=== PATIENT | female | born 1985 | race African-American/Black ===

== ENCOUNTER 2016-10-12 13:35 | Emergency (ER) | payer MEDICAID ==
[~2016-10-12] VITALS: Ht 177.8 cm; Wt 85.7 kg
[~2016-10-12 13:35] MED LIST: BACTRIM DS TAB1 EAC1 ORAL; BENADRYL25 MG ORAL; NKM
[2016-10-12 14:00] VITALS: BP 178/76
[2016-10-12] MEDS ORDERED: Ipratropium 0.02% Inh Soln 2.5ml UD HHN ONE (14:30)
[2016-10-12] MEDS ORDERED: Albuterol ud Inhalation HHN ONE (14:30)
[2016-10-12 15:00] VITALS: BP 144/69
[2016-10-12] MEDS ORDERED: PROMETHAZINE-D118 ML ORAL (15:25)
[2016-10-12] MEDS ORDERED: PREDNISONE20 MG ORAL (15:25)
[2016-10-12] MEDS ORDERED: ALBUTEROL SULF8.5 GM INH (15:25)
[2016-10-12 15:32] VITALS: BP 144/69
--- NOTE | 2016-10-12 15:46 | Diagnostic Imaging Report ---
Indication: Cough Technique: Single portable AP view of the chest. Findings: Comparison: None. The bones and extra pulmonary soft tissues, cardiomediastinal silhouette, pulmonary vasculature and parenchyma, and pleural surfaces are unremarkable. IMPRESSION: Negative portable AP chest.
--- NOTE | 2016-10-12 22:51 | Emergency Room Report ---
History of Present Illness General Chief Complaint: General Complaint Source: Patient Present Illness HPI 30-year-old female presents ED complaining of chest tightness and shortness of breath x2 days. No difficulty breathing, worse with deep breaths. Notes dry cough. Notes runny nose and bodyaches. Denies fevers or chills. Denies sick contacts or recent travel. No other aggravating relieving factors. Denies any other associated symptoms Allergies: Coded Allergies: MORPHINE (Verified Allergy, Unknown, Shortness of Breath, 06/15/16) Patient History Past Medical History: none Past Surgical History: none Pertinent Family History: none Social History: Denies: alcohol use, drug use, smoking Last Menstrual Period: 1 year ago; contraceptive measure Now: No Immunizations: UTD Reviewed Nursing Documentation: PMH: Agreed, PSxH: Agreed Nursing Documentation-PMH Past Medical History: No Stated History Review of Systems All Other Systems: negative except mentioned in HPI Physical Exam Vital Signs Date Time Temp Pulse Resp B/P Pulse Ox O2 Delivery O2 Flow Rate FiO2 10/12/16 13:47 98.6 91 16 117/71 98 Room Air 10/12/16 14:30 21 Sp02 EP Interpretation: reviewed, normal General Appearance: normal inspection Head: normocephalic Eyes: bilateral eye PERRL, bilateral eye normal inspection ENT: normal ENT inspection Neck: normal inspection Respiratory: wheezing Cardiovascular #1: regular rate, rhythm, no edema Gastrointestinal: normal bowel sounds, non tender, soft, non-distended, no guarding, no rebound Rectal: deferred Genitourinary: no CVA tenderness Musculoskeletal: normal inspection Neurologic: alert, oriented x3, responsive, motor strength/tone normal, sensory intact, speech normal Psychiatric: normal inspection Skin: normal inspection Lymphatic: normal inspection Medical Decision Making Diagnostic Impression: Primary Impression: Bronchitis ER Course Hospital Course 30-year-old female presents to ED complaining of dry cough, chest tightness and shortness of breath Differential diagnoses include: URI, bronchitis, asthma/COPD, pneumonia Clinical course Patient placed on stretcher. After initial history and physical I ordered a pleasant treatment, EKG, chest x-ray EKG-no ischemic change CXR unremarkable Upon reassessment patient states cough and symptoms have improved. Findings consistent with bronchitis. Diagnosis - bronchitis Stable and discharged home with prescriptions for Rx albuterol, prednisone, cough syrup. Instructed to followup with PMD. Return to ED if symptoms recur or worsen EKG Diagnostic Results Rate: normal Rhythm: NSR ST Segments: no acute changes ASA given to the pt in ED: No Rhythm Strip Diag. Results EP Interpretation: yes Rhythm: NSR, no PVC's, no ectopy Chest X-Ray Diagnostic Results EP Interpretation: No Findings: no consolidation, no effusion, no pneumothorax, no acute cardiopulmonary disease Number of Views: 1 Last Vital Signs Date Time Temp Pulse Resp B/P Pulse Ox O2 Delivery O2 Flow Rate FiO2 10/12/16 15:32 98.6 100 19 144/69 100 Room Air 21 Status: improved Disposition: HOME, SELF-CARE Condition: Stable Scripts D-Methorphan Hb/Prometh Hcl* (PROMETHAZINE-DM SYRUP*) 118 Ml Syrup 5 ML ORAL Q4H Y for For Cough for 7 Days, ML 0 Refills Prov: ADRIENNE BRISCOE M.D. 10/12/16 Prednisone* (PREDNISONE*) 20 Mg Tablet 40 MG ORAL DAILY, #10 TAB Prov: ADRIENNE BRISCOE M.D. 10/12/16 Albuterol Sulfate* (ALBUTEROL SULFATE MDI*) 8.5 Gm Hfa.aer.ad 2 PUFF INH Q4H Y for cough/wheezing, #1 EA 0 Refills Prov: ADRIENNE BRISCOE M.D. 10/12/16 Patient Instructions: Acute Bronchitis, [id number] ADRIENNE BRISCOE M.D. Oct 12, 2016 22:51
--- NOTE | 2016-10-17 20:30 | Cardiology Report ---
APPROVED REPORT EKG Measurement Heart [id number] IN 158P34 [id number] Normal sinus rhythm Nonspecific T wave abnormality Prolonged QT Abnormal ECG
== END 2016-10-12 15:33 | disposition home or self-care (01) ==
LOC: EMR 14:15
DX: J40 Bronchitis, not specified as acute or chronic (principal)
CPT/HCPCS: 71010; 93005; 94640; 94664; 99284

== ENCOUNTER 2017-08-02 00:18 | Emergency (ER) | payer MEDICAID ==
[~2017-08-02] VITALS: Ht 157.5 cm; Wt 85.3 kg
[~2017-08-02 00:18] MED LIST changes: +ALBUTEROL SULF8.5 GM INH; +DIFLUCAN100 MG ORAL; +MACROBID100 MG ORAL; +PREDNISONE20 MG ORAL; +PROMETHAZINE-D118 ML ORAL
[2017-08-02 00:23] VITALS: BP 141/88
[2017-08-02] MEDS ORDERED: NKM (00:24)
[2017-08-02] MEDS ORDERED: KEFLEX500 MG ORAL (00:40)
[2017-08-02] MEDS ORDERED: IBUPROFEN600 MG ORAL (00:40)
[2017-08-02] MEDS ORDERED: Cephalexin 500mg cap ORAL ONE (00:45)
[2017-08-02 00:48] VITALS: BP 141/88
--- NOTE | 2017-08-02 03:58 | Emergency Room Report ---
History of Present Illness General Chief Complaint: Skin Rash/Abscess Source: Patient Present Illness HPI 31-year-old female presents ED for evaluation. Patient states that she noticed swelling to the right side of her face and right hand this morning. Pain as throbbing, 8/10, nonradiating denies fevers chills. Denies any drainage. Denies any known food or drug allergies. Denies tongue swelling or throat swelling. Father aggravating relieving factors. Denies any other associated symptoms Allergies: Coded Allergies: MORPHINE (Verified Allergy, Unknown, Shortness of Breath, 06/15/16) Patient History Past Medical History: none Past Surgical History: none Pertinent Family History: none Social History: Denies: smoking, alcohol use, drug use Last Menstrual Period: 01/08/17 Now: No : 2 Para: 2 Immunizations: UTD Reviewed Nursing Documentation: PMH: Agreed, PSxH: Agreed Nursing Documentation-PMH Past Medical History: No Stated History Review of Systems All Other Systems: negative except mentioned in HPI Physical Exam Vital Signs Date Time Temp Pulse Resp B/P (MAP) Pulse Ox O2 Delivery O2 Flow Rate FiO2 08/02/17 00:21 98.4 79 14 141/88 99 Room Air Sp02 EP Interpretation: reviewed, normal General Appearance: no apparent distress, alert, GCS 15, non-toxic Head: normocephalic Eyes: bilateral eye normal inspection, bilateral eye PERRL ENT: normal ENT inspection Neck: normal inspection Respiratory: normal inspection Cardiovascular #1: normal inspection Gastrointestinal: normal inspection Rectal: deferred Genitourinary: no CVA tenderness Musculoskeletal: normal inspection Neurologic: alert, oriented x3, responsive, motor strength/tone normal, sensory intact, speech normal Psychiatric: judgement/insight normal, memory normal, mood/affect normal, no suicidal/homicidal ideation Skin: other - induration/erythema to R side of face, R hand. no fluctuance or discharge Lymphatic: normal inspection Medical Decision Making Diagnostic Impression: Primary Impression: Insect bite Qualified Codes: W57.XXXA - Bitten or stung by nonvenomous insect and other nonvenomous arthropods, initial encounter ER Course Hospital Course 31-year-old female presents to ED with redness, swelling to face, R hand Differential diagnoses include: Cellulitis, dermatitis, insect bite, abscess Clinical course Patient placed on stretcher. After initial history, physical exam reveals a female in no acute distress. On exam there is a site for mild erythema and induration to the right side of face and R hand. There is no fluctuance. There is no tongue swelling, no stridor, no signs of impending airway. Clinical findings consistent with a insect bite with the possible bacterial superinfection. reassurance given given keflex in ED Diagnosis - insect bite stable and discharged to home with prescription for Keflex. recommend warm compresses. Instructed to followup with PMD. Instructed return to ED if symptoms recur or worsen Last Vital Signs Date Time Temp Pulse Resp B/P (MAP) Pulse Ox O2 Delivery O2 Flow Rate FiO2 08/02/17 00:48 98.4 79 14 141/88 99 Room Air Status: improved Disposition: HOME, SELF-CARE Condition: Stable Scripts Ibuprofen* (MOTRIN*) 600 Mg Tablet 600 MG ORAL Q8H Y for For Pain, #30 TAB 0 Refills Prov: ADRIENNE BRISCOE M.D. 08/02/17 Cephalexin* (KEFLEX*) 500 Mg Capsule 500 MG ORAL Q6H, #28 CAP 0 Refills Prov: ADRIENNE BRISCOE M.D. 08/02/17 Referrals: [facility]ERR[facility] (PCP) Patient Instructions: Insect Bite, [id number] ADRIENNE BRISCOE M.D. Aug 02, 2017 03:58
== END 2017-08-02 00:48 | disposition home or self-care (01) ==
LOC: EMR 00:30
DX: S00.86XA Insect bite (nonvenomous) of other part of head, initial encounter (principal); S60.561A Insect bite (nonvenomous) of right hand, initial encounter; W57.XXXA Bitten or stung by nonvenomous insect and other nonvenomous arthropods, initial encounter; Y92.9 Unspecified place or not applicable; M79.89 Other specified soft tissue disorders
CPT/HCPCS: 99284

== ENCOUNTER 2017-12-26 08:38 | Emergency (ER) | payer MEDICAID ==
[~2017-12-26] VITALS: Ht 154.9 cm; Wt 84.4 kg
[~2017-12-26 08:38] MED LIST changes: +IBUPROFEN600 MG ORAL; +KEFLEX500 MG ORAL
[2017-12-26] MEDS ORDERED: Albuterol/Ipratropium 3ml neb HHN ONE (09:00)
--- NOTE | 2017-12-26 09:16 | Emergency Room Report ---
History of Present Illness General Chief Complaint: Upper Respiratory Illness Source: Patient Present Illness HPI Patient presents to the emergency department today complaining of 2 weeks of worsening cough and congestion. She has clear sputum but today had some hemoptysis. Patient also complains of left lower extremity swelling. Patient is on control and has an implant. She 90 fever. She complains of some shortness of breath and chest pain with coughing. Denies any abdominal pain. Denies any dysuria or urinary frequency. Patient states that her bilateral ankles have been a little bit more swollen over the last couple of days but seems to be worse on the left. She denies any calf pain. No recent travel. No history of pulmonary embolism or DVT. Symptoms is noted to be moderate to severe. Patient denies standing.No other modifying factors. No other associated signs and symptoms. No other complaints were noted. Allergies: Coded Allergies: MORPHINE (Verified Allergy, Unknown, Shortness of Breath, 06/15/16) Patient History Past Surgical History: none Pertinent Family History: none Social History: Denies: smoking, alcohol use, drug use Last Menstrual Period: Unk date Reviewed Nursing Documentation: PMH: Agreed; PSxH: Agreed Review of Systems All Other Systems: negative except mentioned in HPI Physical Exam Vital Signs Date Time Temp Pulse Resp B/P (MAP) Pulse Ox O2 Delivery O2 Flow Rate FiO2 12/26/17 08:43 98.4 98 19 142/95 97 Room Air 98.4 Sp02 EP Interpretation: reviewed, normal General Appearance: normal inspection, alert, mild distress, other - coughing Head: atraumatic Eyes: bilateral eye normal inspection ENT: normal ENT inspection, hearing grossly normal, normal voice Neck: normal inspection, full range of motion, supple, no bony tend Respiratory: normal inspection, no respiratory distress, no retraction, decreased breath sounds, wheezing, expiration Cardiovascular #1: regular rate, rhythm, other - trace pedal edema Gastrointestinal: normal inspection, normal bowel sounds, non tender, soft, no guarding, no hernia Genitourinary: no CVA tenderness Musculoskeletal: back normal, normal range of motion, swelling - bilateral ankle worse on the left Neurologic: normal inspection, alert, responsive, speech normal Psychiatric: normal inspection, judgement/insight normal, anxious Skin: normal inspection, normal color, no rash Medical Decision Making Diagnostic Impression: Primary Impression: Cough Additional Impression: Pedal edema ER Course Patient presents to the emergency department today complaining of cough. In addition she complains of pedal edema. Differential considerations include DVT pneumothorax pneumonia bronchitis just the name a few.Given the severity of the patient's presentation I felt this is a highly complex patient. This patient required extensive workup. Patient's laboratory workup was negative. Chest exam was also normal. Because of patient's unilateral pedal edema ultrasound was performed which was negative for DVT. I felt the patient likely had trace pedal edema she is advised to elevate her legs. Her chest x-ray was negative but her symptoms have been lasting a long time. Therefore she was given albuterol antibiotics.Patient is advised to follow up with primary doctor in 2-3 days and return the emergency room for any worsening symptoms and as needed. Labs Test 12/26/17 09:02 White Blood Count 8.7 K/UL (4.8-10.8) Red Blood Count 4.62 M/UL (4.20-5.40) Hemoglobin 14.6 G/DL (12.0-16.0) Hematocrit 43.8 % (37.0-47.0) Mean Corpuscular Volume 95 FL (80-99) Mean Corpuscular Hemoglobin 31.6 PG (27.0-31.0) Mean Corpuscular Hemoglobin Concent 33.3 G/DL (32.0-36.0) Red Cell Distribution Width 13.1 % (11.6-14.8) Platelet Count 274 K/UL (150-450) Mean Platelet Volume 7.8 FL (6.5-10.1) Neutrophils (%) (Auto) 54.4 % (45.0-75.0) Lymphocytes (%) (Auto) 32.6 % (20.0-45.0) Monocytes (%) (Auto) 6.7 % (1.0-10.0) Eosinophils (%) (Auto) 5.0 % (0.0-3.0) Basophils (%) (Auto) 1.3 % (0.0-2.0) D-Dimer 0.24 mg/L FEU (0.00-0.49) Urine Color Yellow Urine Appearance Slightly cloudy Urine pH 8 (4.5-8.0) Urine Specific [place] 1.010 (1.005-1.035) Urine Protein Negative (NEGATIVE) Urine Glucose (UA) Negative (NEGATIVE) Urine Ketones Negative (NEGATIVE) Urine Occult Blood 1+ (NEGATIVE) Urine Nitrite Negative (NEGATIVE) Urine Bilirubin Negative (NEGATIVE) Urine Urobilinogen Normal MG/DL (0.0-1.0) Urine Leukocyte Esterase 1+ (NEGATIVE) Urine RBC 0-2 /HPF (0 - 2) Urine WBC 2-4 /HPF (0 - 2) Urine Squamous Epithelial Cells Few /LPF (NONE/OCC) Urine Amorphous Sediment Occasional /LPF (NONE) Urine Bacteria Few /HPF (NONE) Urine HCG, Qualitative Negative (NEGATIVE) Sodium Level 140 MMOL/L (136-145) Potassium Level 3.9 MMOL/L (3.5-5.1) Chloride Level 105 MMOL/L (98-107) Carbon Dioxide Level 28 MMOL/L (21-32) Anion Gap 7 mmol/L (5-15) Blood Urea Nitrogen 9 mg/dL (7-18) Creatinine 0.8 MG/DL (0.55-1.30) Estimat Glomerular Filtration Rate > 60 mL/min (>60) Glucose Level 102 MG/DL (74-106) Calcium Level 9.5 MG/DL (8.5-10.1) Total Bilirubin 0.3 MG/DL (0.2-1.0) Aspartate Amino Transf (AST/SGOT) 19 U/L (15-37) Alanine Aminotransferase (ALT/SGPT) 28 U/L (12-78) Alkaline Phosphatase 84 U/L (46-116) Total Creatine Kinase 292 U/L (26-308) Creatine Kinase MB < 0.5 NG/ML (0.0-3.6) Creatine Kinase MB Relative Index 0.1 Troponin I 0.000 ng/mL (0.000-0.056) Pro-B-Type Natriuretic Peptide 14 pg/mL (0-125) Total Protein 8.1 G/DL (6.4-8.2) Albumin 4.0 G/DL (3.4-5.0) Globulin 4.1 g/dL Albumin/Globulin Ratio 1.0 (1.0-2.7) EKG Diagnostic Results Rate: normal Rhythm: NSR ST Segments: no acute changes Rhythm Strip Diag. Results EP Interpretation: yes Rate: 83 Rhythm: NSR, no PVC's, no ectopy CT/MRI/US Diagnostic Results CT/MRI/US Diagnostic Results : Imaging Test Ordered: left lower extremity ultrasound: Neg Last Vital Signs Date Time Temp Pulse Resp B/P (MAP) Pulse Ox O2 Delivery O2 Flow Rate FiO2 12/26/17 08:50 98 19 Room Air 12/26/17 08:43 98.4 142/95 97 98.4 Status: improved Disposition: HOME, SELF-CARE Condition: Stable Scripts Azithromycin* (ZITHROMAX*) 250 Mg Tablet 250 MG ORAL DAILY, #6 TAB 0 Refills Take two tablets by mouth today, then take one tablet by mouth daily for four days Prov: ALMA SHAW M.D. 12/26/17 Albuterol Sulfate* (ALBUTEROL SULFATE MDI*) 8.5 Gm Hfa.aer.ad 2 PUFF INH Q4H PRN for cough/wheezing, #1 EA 0 Refills Prov: ALMA SHAW M.D. 12/26/17 ALMA SHAW M.D. Dec 26, 2017 09:16
[2017-12-26 09:17] VITALS: BP 125/85
[2017-12-26 09:42] LABS: APPEARANCE,URINE SLIGHTLY CLOUDY; BILIRUBIN, URINE NEGATIVE (NEGATIVE); COLOR,URINE YELLOW; GLUCOSE, URINE (UA) NEGATIVE (NEGATIVE); KETONES,URINE NEGATIVE (NEGATIVE); LEUKOCYTE ESTERASE ,URINE 1+ (NEGATIVE); NITRITE,URINE NEGATIVE (NEGATIVE); PH,URINE 8 (4.5-8.0); PROTEIN,URINE NEGATIVE (NEGATIVE); UROBILINOGEN,URINE NORMAL MG/DL (0.0-1.0)
[2017-12-26 09:47] LABS: ANION GAP 7 mmol/L (5-15); BLOOD UREA NITROGEN 9 mg/dL (7-18); CALCIUM 9.5 MG/DL (8.5-10.1); CARBON DIOXIDE 28 MMOL/L (21-32); CHLORIDE 105 MMOL/L (98-107); CREATININE 0.8 MG/DL (0.55-1.30); POTASSIUM 3.9 MMOL/L (3.5-5.1); SODIUM 140 MMOL/L (136-145)
[2017-12-26 09:54] LABS: BASOPHILS % (AUTO) 1.3 % (0.0-2.0); HEMATOCRIT 43.8 % (37.0-47.0); HEMOGLOBIN 14.6 G/DL (12.0-16.0); LYMPHOCYTES % (AUTO) 32.6 % (20.0-45.0); MEAN CORPUSCULAR VOLUME 95 FL (80-99); MONOCYTES % (AUTO) 6.7 % (1.0-10.0); NEUTROPHILS % (AUTO) 54.4 % (45.0-75.0); PLATELET COUNT 274 K/UL (150-450); RED BLOOD COUNT 4.62 M/UL (4.20-5.40); RED CELL DISTRIBUTION WIDTH 13.1 % (11.6-14.8); WHITE BLOOD COUNT 8.7 K/UL (4.8-10.8)
[2017-12-26 09:59] LABS: ALANINE AMINOTRANSFERASE 28 U/L (12-78); ALKALINE PHOSPHATASE 84 U/L (46-116); ASPARTATE AMINO TRANSFERASE 19 U/L (15-37); BILIRUBIN,TOTAL 0.3 MG/DL (0.2-1.0); CKMB < 0.5 NG/ML (0.0-3.6); CREATINE KINASE 292 U/L (26-308)
--- NOTE | 2017-12-26 10:02 | Diagnostic Imaging Report ---
Indication: Cough Technique: One view of the chest Comparison: 10/12/2016 Findings: Lungs and pleural spaces are clear. Heart size is normal Impression: No acute process
[2017-12-26] MEDS ORDERED: ALBUTEROL SULF8.5 GM INH (11:16)
[2017-12-26] MEDS ORDERED: AZITHROMYCIN250 MG ORAL (11:16)
[2017-12-26 11:23] VITALS: BP 125/85
--- NOTE | 2017-12-27 21:13 | Cardiology Report ---
APPROVED REPORT EKG Measurement Heart [id number] CT 108P14 [id number] Sinus rhythm with short CT Moderate voltage criteria for LVH, may be normal variant Nonspecific T wave abnormality Abnormal ECG
--- NOTE | 2017-12-28 00:05 | Diagnostic Imaging Report ---
APPROVED REPORT CPT Code: 37957 Present Symptoms Lower Extremity Pain: Left LEFT LEG: Venous imaging reveals a patent deep venous system. There is no evidence of thrombus within the femoral, popliteal or tibial segments. The greater saphenous vein is also within normal limits. Doppler indicates normal spontaneous flow within these segments.
== END 2017-12-26 11:23 | disposition home or self-care (01) ==
LOC: EMR 09:21
DX: R05 Cough (principal); R60.0 Localized edema
CPT/HCPCS: 36415; 71045; 80053; 81001; 81025; 82550; 82553; 83880; 84484; 85025; 85379; 93005; 93971; 94640; 94664; 99284; J7620

== ENCOUNTER 2018-11-18 06:11 | Emergency (ER) | payer MEDICAID ==
[~2018-11-18] VITALS: Ht 157.5 cm; Wt 83.9 kg
[~2018-11-18 06:11] MED LIST changes: +AZITHROMYCIN250 MG ORAL
--- NOTE | 2018-11-18 06:22 | NUR ---
ED Nurse Note: Patient walk in c/o upper back pain and right shoulder pain for 1 day. Patient states she woke up yesterday with the pain. Pain unrelieved with tylenol; facial grimacing; grasping of side. AO4. VSS
[2018-11-18 06:23] VITALS: BP 134/87
[2018-11-18] MEDS ORDERED: Ketorolac 30mg Inj IV ONE (06:30)
[2018-11-18] MEDS ORDERED: fentaNYL 100 mcg/2 mL IV ONE (06:30)
--- NOTE | 2018-11-18 06:34 | Emergency Room Report ---
History of Present Illness General Chief Complaint: Pain Source: Patient Present Illness HPI Patient presents with 2 days of right upper back muscle spasm and pain. It's worse when she moves her arm and also her neck. She denies any fevers, cough, nausea, vomiting, diarrhea, sore throat or rashes. She works at a desk job. She was not working her upper arms the last few days. She's never had this type of pain before. She denies any edema or calf pain. The pain is 10/10 at this time, aching and stiffness radiating somewhat to her shoulder and neck. She's been taking Tylenol and using Adis Mock without any relief. The patient started her menstruation today area it's normal for her. She denies dysuria. 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[employer] Last Menstrual Period: 11/18/2018 Now: No Reviewed Nursing Documentation: PMH: Agreed; PSxH: Agreed Nursing Documentation-PMH Past Medical History: No History, Except For Review of Systems All Other Systems: negative except mentioned in HPI Physical Exam Vital Signs Date Time Temp Pulse Resp B/P (MAP) Pulse Ox O2 Delivery O2 Flow Rate FiO2 11/18/18 06:15 98.1 75 18 144/105 96 Room Air Sp02 EP Interpretation: reviewed, normal General Appearance: well appearing, no apparent distress, GCS 15 Head: normocephalic Eyes: bilateral eye normal inspection, bilateral eye PERRL, bilateral eye EOMI ENT: moist mucus membranes Neck: supple Respiratory: lungs clear, normal breath sounds, other - Right medial scapular and trapezius muscle spasm with ten to palpation and movement of her shoulder Cardiovascular #1: regular rate, rhythm, no edema Cardiovascular #2: 2+ radial (R) Gastrointestinal: normal inspection, normal bowel sounds, non tender, no mass, non-distended, overweight Musculoskeletal: back normal - see chest, gait/station normal, no calf tenderness, decreased range of motion - Right arm, Tonny's Sign negative Neurologic: alert, oriented x3, motor strength/tone normal, DTRs symmetric, sensory intact, speech normal, grossly normal Psychiatric: mood/affect normal Skin: normal inspection, warm/dry Medical Decision Making Diagnostic Impression: Primary Impression: Muscle spasm ER Course Patient presents with upper back pain and muscle spasm. Differential includes muscle spasm, strain, underlying pulmonary issue amongst others. She'll be evaluated with chest chest x-ray and placed on a manager cardiac cath. His exam is against pulmonary embolus. She'll be treated with Toradol, fentanyl, Zofran and Soma. Chest x-ray unremarkable. Patient improved with treatment. Discussed treatment plan. Patient stable for outpatient observation and treatment. Rhythm Strip Diag. Results EP Interpretation: yes Rhythm: NSR, no PVC's, no ectopy Chest X-Ray Diagnostic Results Chest X-Ray Diagnostic Results : Chest X-Ray Ordered: Yes # of Views/Limited/Complete: 1 View Indication: Other EP Interpretation: Yes Interpretation: no consolidation, no effusion, no pneumothorax Impression: No acute disease Electronically Signed by: Electronically signed by Gumaro Mccollum MD Last Vital Signs Date Time Temp Pulse Resp B/P (MAP) Pulse Ox O2 Delivery O2 Flow Rate FiO2 11/18/18 07:39 98.1 86 18 134/87 96 Room Air Status: improved Disposition: HOME, SELF-CARE Condition: Improved Scripts Tramadol Hcl* (ULTRAM*) 50 Mg Tablet 50 MG ORAL Q6H PRN for For Pain, #10 TAB 0 Refills Prov: Gumaro Mccollum MD 11/18/18 Ibuprofen* (MOTRIN*) 600 Mg Tablet 600 MG ORAL Q6H PRN for For Pain, #20 TAB Prov: Gumaro Mccollum MD 11/18/18 Methocarbamol* (ROBAXIN*) 500 Mg Tablet 500 MG PO TID, #10 TAB 0 Refills Prov: Gumaro Mccollum MD 11/18/18 Gumaro Mccollum MD Nov 18, 2018 06:34
--- NOTE | 2018-11-18 07:07 | NUR ---
HAND-OFF: Report given to LOLA Velasquez. Patient in stable condition. Plan of care and medication reassessment endorsed.
[2018-11-18] MEDS ORDERED: IBUPROFEN600 MG ORAL (07:27)
[2018-11-18] MEDS ORDERED: ROBAXIN500 MG PO (07:27)
[2018-11-18] MEDS ORDERED: TRAMADOL HCL50 MG ORAL (07:27)
[2018-11-18 07:39] VITALS: BP 134/87
--- NOTE | 2018-11-18 07:40 | NUR ---
ER DISCHARGE NOTE: Patient is cleared to be discharged per ERMD, pt is aox4, on room air, with stable vital signs. pt was given dc and prescription instructions, pt was able to verbalize understanding, pt id band and iv site removed without complications. pt is able to ambulate with steady gait. pt took all belongings.
--- NOTE | 2018-11-18 10:37 | Diagnostic Imaging Report ---
Indication: Chest pain, upper back and shoulder pain Technique: One view of the chest Comparison: 12/26/2017 Findings: Patient's chin obscures the right lung apex. Lungs and pleural spaces are clear. Heart size is normal Impression: No acute process
== END 2018-11-18 08:05 | disposition home or self-care (01) ==
LOC: EMR 06:52
DX: M62.830 Muscle spasm of back (principal); Z88.6 Allergy status to analgesic agent; R07.9 Chest pain, unspecified
CPT/HCPCS: 71045; 96374; 96375; 99284; J1885; J2405; J3010

== ENCOUNTER 2018-12-11 10:31 | Emergency (ER) | payer MEDICAID ==
[~2018-12-11] VITALS: Ht 157.5 cm; Wt 83.5 kg
[~2018-12-11 10:31] MED LIST changes: +ROBAXIN500 MG PO; +TRAMADOL HCL50 MG ORAL
[2018-12-11 10:41] VITALS: BP 145/96
[2018-12-11] MEDS ORDERED: NKM (10:44)
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
[2018-12-11] MEDS ORDERED: HYDROcodone/Acetamin 5/325 tab ORAL ONE (11:00)
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
[2018-12-11] MEDS ORDERED: IBUPROFEN600 MG ORAL (13:00)
[2018-12-11] MEDS ORDERED: NORCO 5-325 TA1 EACH ORAL (13:00)
[2018-12-11] MEDS ORDERED: CYCLOBENZAPRINE10 MG ORAL (13:00)
--- NOTE | 2018-12-11 13:17 | NUR ---
ED Nurse Note: PT SITTING PEACEFULLY IN BED IN NAD. AOX4. PRESCRIPTIONS AND DISCHARGE PAPERWORK EXPLAINED TO PT. PT VERBALIZES UNDERSTANDING AND ALL QUESTIONS ANSWERED. PRESCRIPTIONS AND DISCHARGE PAPERWORK GIVEN TO PT AND ID WRISTBAND REMOVED. PT WALKED OUT OF ER WITH STEADY GAIT AND ALL BELONGINGS.
[2018-12-11 13:18] VITALS: BP 138/92
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
== END 2018-12-11 13:20 | disposition home or self-care (01) ==
LOC: EMR 11:04
DX: S16.1XXA Strain of muscle, fascia and tendon at neck level, initial encounter (principal); S46.912A Strain of unspecified muscle, fascia and tendon at shoulder and upper arm level, left arm, initial encounter; V43.52XA Car driver injured in collision with other type car in traffic accident, initial encounter; Y92.410 Unspecified street and highway as the place of occurrence of the external cause; Z88.6 Allergy status to analgesic agent
CPT/HCPCS: 72040; 99283

== ENCOUNTER 2019-03-26 18:41 | Emergency (ER) | payer MEDICAID ==
[~2019-03-26] VITALS: Ht 157.5 cm; Wt 83.5 kg
[~2019-03-26 18:41] MED LIST changes: +CYCLOBENZAPRINE10 MG ORAL; +NORCO 5-325 TA1 EACH ORAL
[2019-03-26 18:47] VITALS: BP 134/90
--- NOTE | 2019-03-26 19:03 | Emergency Room Report ---
History of Present Illness General Chief Complaint: Earache Source: Patient Present Illness HPI 33-year-old female with no significant past medical history here complaining of 2 days of right ear pain and right-sided throat pain. Denies swimming or water exposure. Rating the pain 7 out of 10 without radiation. Has been taking ibuprofen with minimal relief. Denies fever and chills, cough and congestion, headache and dizziness. Denies vertigo and tinnitus. Denies chest pain, shortness of breath, palpitation, abdominal pain, nausea vomiting and all other associated symptoms. Allergies: Coded Allergies: MORPHINE (Verified Allergy, Unknown, Shortness of Breath, 03/26/19) Patient History Past Medical History: see triage record Past Surgical History: unable to obtain Pertinent Family History: none Last Menstrual Period: march2019 Now: No Immunizations: UTD Reviewed Nursing Documentation: PMH: Agreed; PSxH: Agreed Nursing Documentation-PMH Past Medical History: No Stated History Review of Systems All Other Systems: negative except mentioned in HPI Physical Exam Vital Signs Date Time Temp Pulse Resp B/P (MAP) Pulse Ox O2 Delivery O2 Flow Rate FiO2 03/26/19 18:44 98.4 81 16 134/90 (105) 99 Room Air Sp02 EP Interpretation: reviewed, normal General Appearance: well appearing, alert, GCS 15 Head: normocephalic, atraumatic Eyes: bilateral eye normal inspection, bilateral eye PERRL ENT: uvula midline, pharyngeal erythema, other - TM is not bulging however due to cerumen impaction cannot visualize most of the inner ear and partial TM however erythema of external ear canal noted and tragus tender to palpation Neck: normal inspection, full range of motion, supple, thyroid normal Respiratory: normal inspection, chest non-tender, lungs clear, no rhonchi, no wheezing Cardiovascular #1: normal inspection, no edema, no murmur Gastrointestinal: normal inspection, soft Genitourinary: no CVA tenderness Neurologic: normal inspection, alert, oriented x3 Psychiatric: normal inspection, judgement/insight normal, memory normal Skin: no rash Lymphatic: normal inspection, no adenopathy Medical Decision Making PA Attestation Diagnosis and treatment plans were reviewed and discussed with my supervising physician Dr. Chambers Diagnostic Impression: Primary Impression: Otitis media ER Course 33-year-old female with no significant past medical history here complaining of 2 days of right ear pain and right-sided throat pain. Denies swimming or water exposure. Rating the pain 7 out of 10 without radiation. Has been taking ibuprofen with minimal relief. Denies fever and chills, cough and congestion, headache and dizziness. Denies vertigo and tinnitus. Denies chest pain, shortness of breath, palpitation, abdominal pain, nausea vomiting and all other associated symptoms. Ddx considered but are not limited to: Otitis media, otitis externa, peritonsillar abscess Vital signs: are WNL, pt. is afebrile H&PE are most consistent with: Otitis media ORDERS: Augmentin, naproxen ED INTERVENTIONS: None required at this time. DISCHARGE: At this time pt. is stable for d/c to home. Will provide printed patient care instructions, and any necessary prescriptions. Care plan and follow up instructions have been discussed with the patient prior to discharge. Patient to follow-up with ear nose throat doctor. At this time patient to be treated with oral antibiotics due to right-sided pain and swelling of the right tonsil as well as right ear pain. Avoid water exposure. Return to the emergency room if worsening symptoms. Last Vital Signs Date Time Temp Pulse Resp B/P (MAP) Pulse Ox O2 Delivery O2 Flow Rate FiO2 03/26/19 18:47 98.4 81 16 134/90 99 Room Air Disposition: HOME, SELF-CARE Condition: Stable Scripts Naproxen* (NAPROXEN*) 500 Mg Tablet 500 MG ORAL TWICE A DAY, #20 TAB Prov: Johnna Avila 03/26/19 Amoxicillin/Potassium Clav 875-125* (AUGMENTIN 875-125 TABLET*) 1 Each Tablet 1 TAB ORAL TWICE A DAY for 10 Days, #20 TAB Prov: Johnna Avila 03/26/19 Patient Instructions: Otitis Media, Adult, [id number] Additional Instructions: See primary doctor for follow-up and referral to ear nose throat doctor Johnna Avila Mar 26, 2019 19:03
[2019-03-26] MEDS ORDERED: AUGMENTIN 875-1 EAC1 ORAL (19:04)
[2019-03-26] MEDS ORDERED: NAPROXEN500 M2 ORAL (19:05)
--- NOTE | 2019-03-26 19:10 | NUR ---
ED Nurse Note: Patient is being discharged from medical care. Patient awake, alert, oriented x 4. D/C instruction and prescription given to patient. All questions were answered. Ambulated out with steady gait with all her belongings.
== END 2019-03-26 19:10 | disposition home or self-care (01) ==
LOC: EMR 19:03
DX: H66.90 Otitis media, unspecified, unspecified ear (principal); R07.0 Pain in throat; Z88.6 Allergy status to analgesic agent
CPT/HCPCS: 99282

== ENCOUNTER 2019-09-22 18:02 | Emergency (ER) | payer MEDICAID, OTHER ==
[~2019-09-22] VITALS: Ht 157.5 cm; Wt 83.5 kg
[~2019-09-22 18:02] MED LIST changes: +AUGMENTIN 875-1 EAC1 ORAL; +NAPROXEN500 M2 ORAL
--- NOTE | 2019-09-22 18:10 | NUR ---
ED Nurse Note: pt. ambualted to ed d/t, c/o severe abdominal all over cramping for past 5 hrs no vaginal bleed. Pt is 18weeks . Placed on bed.
--- NOTE | 2019-09-22 18:26 | NUR ---
ED Nurse Note: Pt went on US accompanied by tech
[2019-09-22] MEDS ORDERED: Metoclopramide 10mg/2ml Inj IVP ONE (18:30)
[2019-09-22 18:37] LABS: BASOPHILS % (AUTO) 1.2 % (0.0-2.0); EOSINOPHILS % (AUTO) 1.7 % (0.0-3.0); HEMATOCRIT 36.2 % (37.0-47.0); HEMOGLOBIN 12.2 G/DL (12.0-16.0); LYMPHOCYTES % (AUTO) 19.2 % (20.0-45.0); MEAN CORPUSCULAR VOLUME 92 FL (80-99); MONOCYTES % (AUTO) 6.1 % (1.0-10.0); NEUTROPHILS % (AUTO) 71.9 % (45.0-75.0); PLATELET COUNT 227 K/UL (150-450); RED BLOOD COUNT 3.95 M/UL (4.20-5.40); RED CELL DISTRIBUTION WIDTH 12.1 % (11.6-14.8)
[2019-09-22 18:46] LABS: ANION GAP 12 mmol/L (5-15); APPEARANCE,URINE SLIGHTLY CLOUDY; BILIRUBIN, URINE NEGATIVE (NEGATIVE); BLOOD UREA NITROGEN 5 mg/dL (7-18); CALCIUM 8.5 MG/DL (8.5-10.1); CARBON DIOXIDE 25 MMOL/L (21-32); CHLORIDE 103 MMOL/L (98-107); CREATININE 0.5 MG/DL (0.55-1.30); GLUCOSE, URINE (UA) NEGATIVE (NEGATIVE); KETONES,URINE 4+ (NEGATIVE); LEUKOCYTE ESTERASE ,URINE NEGATIVE (NEGATIVE); NITRITE,URINE NEGATIVE (NEGATIVE); PH,URINE 6 (4.5-8.0); POTASSIUM 3.7 MMOL/L (3.5-5.1); PROTEIN,URINE NEGATIVE (NEGATIVE); SODIUM 140 MMOL/L (136-145); UROBILINOGEN,URINE 1 MG/DL (0.0-1.0)
[2019-09-22 18:48] LABS: COLOR,URINE YELLOW
[2019-09-22 18:51] LABS: ALANINE AMINOTRANSFERASE 56 U/L (12-78); ALBUMIN 2.9 G/DL (3.4-5.0); ALBUMIN/GLOBULIN RATIO 0.8 (1.0-2.7); ALKALINE PHOSPHATASE 63 U/L (46-116); ASPARTATE AMINO TRANSFERASE 29 U/L (15-37); BILIRUBIN,TOTAL 0.3 MG/DL (0.2-1.0)
--- NOTE | 2019-09-22 19:10 | NUR ---
ED Nurse Note: Report received from LOLA Barbour.
--- NOTE | 2019-09-22 19:23 | Emergency Room Report ---
History of Present Illness General Chief Complaint: Complications Source: Patient Present Illness HPI 33-year-old female who is G4, and is 18 weeks here complaining of 5 hours of left-sided abdominal pain and cramping. Denies any vaginal bleeding spotting at this time. Denies fever and chills, lightheadedness, chest pain, shortness of breath, syncope. Denies any fall or injury, or lifting heavy objects. Complains of urinary frequency and urgency. Last OB/ HEATER ROOM HELPER visit was 2 weeks ago and patient reports that she takes her vitamins on daily basis. Last was 4 years ago and she had a selective . Denies any tobacco smoke, alcohol intake, ibuprofen intake within the past 24 to 48 hours. Denies fever and chills, cough and congestion, and other URI symptoms. Allergies: Coded Allergies: MORPHINE (Verified Allergy, Unknown, Shortness of Breath, 03/26/19) Patient History Past Medical History: see triage record Past Surgical History: unable to obtain Pertinent Family History: none Now: Yes - 18 weeks : 4 Para: 2 Immunizations: UTD Reviewed Nursing Documentation: PMH: Agreed; PSxH: Agreed Nursing Documentation-PMH Past Medical History: No Stated History Review of Systems All Other Systems: negative except mentioned in HPI Physical Exam Vital Signs Date Time Temp Pulse Resp B/P (MAP) Pulse Ox O2 Delivery O2 Flow Rate FiO2 09/22/19 18:06 98.6 93 17 115/78 (90) 99 Room Air Sp02 EP Interpretation: reviewed, normal General Appearance: no apparent distress, alert, GCS 15, non-toxic Head: normocephalic, atraumatic Eyes: bilateral eye normal inspection, bilateral eye PERRL ENT: hearing grossly normal, normal pharynx, no angioedema, normal voice Neck: full range of motion, supple, thyroid normal, no meningismus, no bony tend, supple/symm/no masses Respiratory: chest non-tender, lungs clear, normal breath sounds, no rhonchi, no respiratory distress, no retraction, no wheezing, speaking full sentences Cardiovascular #1: regular rate, rhythm, no edema, no murmur, normal capillary refill Cardiovascular #2: 2+ radial (R), 2+ radial (L) Gastrointestinal: normal bowel sounds, non tender, soft, no mass, no organomegaly, no bruit, other - Gravid Rectal: deferred Genitourinary: no CVA tenderness Musculoskeletal: back normal, normal range of motion, no calf tenderness Neurologic: alert, motor strength/tone normal, oriented, oriented x3, sensory intact, responsive, speech normal Psychiatric: judgement/insight normal, memory normal, mood/affect normal, no suicidal/homicidal ideation Skin: no rash Lymphatic: no adenopathy Medical Decision Making PA Attestation All diagnoses and treatment plans were reviewed and discussed with my supervising physician Dr. Baumann Diagnostic Impression: Primary Impression: UTI (urinary tract infection) during Additional Impression: Abdominal pain during ER Course 33-year-old female who is G4, and is 18 weeks here complaining of 5 hours of left-sided abdominal pain and cramping. Denies any vaginal bleeding spotting at this time. Denies fever and chills, lightheadedness, chest pain, shortness of breath, syncope. Denies any fall or injury, or lifting heavy objects. Complains of urinary frequency and urgency. Last OB/ HEATER ROOM HELPER visit was 2 weeks ago and patient reports that she takes her vitamins on daily basis. Last was 4 years ago and she had a selective . Denies any tobacco smoke, alcohol intake, ibuprofen intake within the past 24 to 48 hours. Denies fever and chills, cough and congestion, and other URI symptoms. Ddx considered but are not limited to: Ectopic , threatened , abdominal pain during , UTI, pyelonephritis, Vital signs: are WNL, pt. is afebrile H&PE are most consistent with: UTI during , abdominal pain during ORDERS: UA, urine cx, CBC, CMP, beta-hCG, type and screen, OB ultrasound, Tylenol, Macrobid ED INTERVENTIONS: Tylenol, Reglan, NS bolus DISCHARGE: At this time pt. is stable for d/c to home. Will provide printed patient care instructions, and any necessary prescriptions. Care plan and follow up instructions have been discussed with the patient prior to discharge. Patient to follow-up with [employer] INST[employer] HELPER in 24 to 48 hours, take medication as directed, avoid strenuous physical activity, if lightheadedness, vaginal bleeding or spotting, worsening symptoms return to the emergency room CT/MRI/US Diagnostic Results CT/MRI/US Diagnostic Results : Imaging Test Ordered: OB ultrasound Impression US OB 1st TRIMESTER: A single intrauterine gestational estimated age 17 weeks 6 days. heart 157 bpm. Cervix length is 5 cm. Visualized anatomy is within normal limits. Amniotic fluid is within normal limits. Last Vital Signs Date Time Temp Pulse Resp B/P (MAP) Pulse Ox O2 Delivery O2 Flow Rate FiO2 09/22/19 18:06 98.6 93 17 115/78 (90) 99 Room Air Disposition: HOME, SELF-CARE Condition: Stable Scripts Acetaminophen* (TYLENOL EXTRA STRENGTH*) 500 Mg Tablet 500 MG ORAL Q8H PRN for Prn Headache/Temp > 101, #30 TAB 0 Refills Prov: Johnna Avila 09/22/19 Nitrofurantoin Monohyd/M-Cryst* (MACROBID 100 MG*) 100 Mg Capsule 100 MG ORAL EVERY 12 HOURS for 7 Days, #14 CAP Prov: Johnna Avila 09/22/19 Patient Instructions: Abdominal Pain During , [id number], Urinary Tract Infection, [id number] Additional Instructions: Follow-up with [employer] INST[employer] HELPER in 24 to 48 hours, take medication as directed, avoid strenuous physical activity. If worsening symptoms return to the emergency room Johnna Avila Sep 22, 2019 19:23
[2019-09-22] MEDS ORDERED: TYLENOL EXTRA500 MG ORAL (19:24)
[2019-09-22] MEDS ORDERED: NITROFURANTOIN100 M2 ORAL (19:24)
--- NOTE | 2019-09-22 19:28 | Diagnostic Imaging Report ---
Indication: Pelvic pain, patient Technique: Transvaginal and transabdominal images of the uterus and fetus Comparison: none Findings: There is a single live intrauterine . This demonstrates positive heart activity, heart rate 157 bpm. The placenta is anterior, fundal, clears the internal cervical os. The cervix is closed, endocervical canal measuring 5 cm in length. Normal amniotic fluid volume, amniotic fluid index 9.1 cm. Estimated gestational age by average ultrasound measurements is 17 weeks 6 days. Estimated date of delivery 02/24/2020. Estimated gestational age by dates is 22 weeks one day. Only limited assessment of anatomy, due to early stage of and emergent nature of exam. No gross anomalies demonstrated. Normal cord insertion, three-vessel cord and four-chamber heart is demonstrated. Impression: 17 weeks 6 day, by average of ultrasound measurements, single live intrauterine . No unusual features This agrees with the preliminary interpretation provided overnight by [facility] teleradiology service.
[2019-09-22 20:00] VITALS: BP 115/78
== END 2019-09-22 20:00 | disposition home or self-care (01) ==
LOC: EMR 19:34
DX: O23.42 Unspecified infection of urinary tract in pregnancy, second trimester (principal); R10.9 Unspecified abdominal pain; Z88.6 Allergy status to analgesic agent; Z3A.17 17 weeks gestation of pregnancy
CPT/HCPCS: 36415; 76805; 80053; 81003; 84702; 85025; 86850; 86900; 86901; 87086; 96361; 96374; 99284; J2765; J7030